=== PATIENT | female | born 1970 | race Caucasian/White ===

== ENCOUNTER 2018-10-23 08:47 | Emergency (ER) | payer MEDICAID, BC ==
[~2018-10-23] VITALS: Ht 154.9 cm; Wt 83.9 kg
[~2018-10-23 08:47] MED LIST: ADV1DS INH; ATEN-158 PO; CEPH500T PO; FLT05NA16 NS; HYDR-1231 PO; LOVA10TA PO; MONT10TA21 PO; RT-ALBUINH IH; STOMACH PILL PO
--- NOTE | 2018-10-23 08:51 | ED Fall/Injury ---
General Stated Complaint: FALL Source: patient Exam Limitations: no limitations History of Present Illness Date Seen by Provider: October 23, 2018 Time Seen by Provider: 08:44 Initial Comments The patient presents to ER by EMS from the [facility] where she works. She tripped over something on the floor fell and struck the right side of her head against a table. She denies loss of consciousness has normal vital signs but has a 1 inch laceration that has since stopped bleeding since EMS arrived. She's having some pain in her head but does not want anything for it right now. She is not on a blood thinner. She does not smoke drink or use recreational drug use. Allergies and Home Medications Allergies Coded Allergies: Penicillins (Unverified Allergy, Mild, 04/11/14) Sulfa (Sulfonamide Antibiotics) (Unverified Allergy, Mild, 04/11/14) Tetanus Vaccines & Toxoid (Unverified Allergy, Mild, 04/11/14) Home Medications Albuterol Sulfate 1 Puff Puff, 1 PUFF IH Q4H PRN for WHEEZING, (Reported) MDI Atenolol 50 Mg Tab, 50 MG PO DAILY, (Reported) Cephalexin 500 Mg Tablet, 500 MG PO QID Prescribed by: ANA CABRAL on 02/27/15 0813 Fluticasone Propionate 16 Gm [place], 2 SPRAYS NS DAILY, (Reported) Hydrocodone Bit/Acetaminophen 1 Tab Tablet, 1 TAB PO Q6H PRN for PAIN Prescribed by: ERA BENDER on 04/11/14 1313 Lovastatin 10 Mg Tablet, 1 EACH PO DAILY WITH SUPPER, (Reported) Montelukast Sodium 10 Mg Tablet, 10 MG PO DAILY, (Reported) Salmeterol Xinaf/Fluticasone 1 Diskus Inhp, 1 DISKUS INH BID, (Reported) [Stomach Pill] , Unknown Dose PO DAILY, (Reported) Patient Home Medication List Home Medication List Reviewed: Yes Review of Systems Review of Systems Constitutional: No chills, No diaphoresis Eyes: Denies Blindness, Denies Blurred Vision Ears, Nose, Mouth, Throat: denies ear pain, denies ear discharge Respiratory: No cough, No short of breath Cardiovascular: No chest pain, No edema Past Rcqbgod-Flxcza-Eksrxb Hx Patient Social History Alcohol Use: Denies Use Recreational Drug Use: No Smoking Status: Never a Smoker Recent Foreign Travel: No Contact w/Someone Who Travel: No Immunizations Up To Date Tetanus Booster (TDap): More than 5yrs Seasonal Allergies Seasonal Allergies: Yes Past Medical History Section Asthma Hypertension Reproductive Disorders: No Physical Exam Vital Signs Vital Signs - First Documented 10/23/18 08:48 Temp 98.0 Pulse 80 Resp 17 B/P (MAP) 127/81 (96) Pulse Ox 98 O2 Delivery Room Air Capillary Refill : Height, Weight, BMI Height: 5'1" Weight: 160lbs. oz. 72.384945ek; BMI Method:Estimated General Appearance: WD/WN, no apparent distress HEENT: PERRL/EOMI, normal ENT inspection, TMs normal, pharynx normal, other (negative for hemotympanum, townsend sign or raccoon eyes. There is a 2.5 cm cadet perficial laceration on the right parietal scalp) Neck: non-tender, full range of motion, supple, normal inspection Cardiovascular: normal peripheral pulses, regular rate, rhythm Respiratory: no respiratory distress, no accessory muscle use Procedures/Interventions Suture Size: 4-0 Progress/Results/Core Measures Results/Orders My Orders Orders - SOHA PHOENIX Ct Head/Cervical Spine Wo (10/23/18 08:49) Vital Signs/I&O 10/23/18 08:48 Temp 98.0 Pulse 80 Resp 17 B/P (MAP) 127/81 (96) Pulse Ox 98 O2 Delivery Room Air Progress Progress Note : Time: 11:22 Progress Note The wound edges were well approximated and cleaned thoroughly and found to just be into the dermis and subcuticular layer. No sutures or whitley are indicated. Diagnostic Imaging Diagonstic Imaging: CT (noncontrast) Plain Films/CT/US/NM/MRI: c-spine, head Comments [facility], [place] NAME: DIPIKA BARRIOS MED REC#: [id number] PT STATUS: REG ER : 1970 PHYSICIAN: SOHA PHOENIX MD ADMIT DATE: 10/23/18/ER Draft Date of Exam:10/23/18 CT HEAD/CERVICAL SPINE WO PROCEDURE: CT head and CT cervical spine without contrast. TECHNIQUE: Multiple contiguous axial images were obtained through the brain and cervical spine without the use of intravenous contrast. Sagittal and coronal reformations through the cervical spine were then performed. Auto Exposure Controls were utilized during the CT exam to meet ALARA standards for radiation dose reduction. INDICATION: Fall. FINDINGS: There are no CT findings of acute intracranial hemorrhage. There is no evidence of intracranial mass effect or shift. There is no hydrocephalus. There is no abnormal extra-axial fluid collection. The basilar cisterns are patent. There is no territorial loss of cary-white differentiation or abnormal hypodensity within the basal ganglia. The mastoid air cells appear clear. Paranasal sinuses appear clear. Cervical spine alignment appears normal. There is normal alignment of the craniocervical junction. There is normal relationship of lateral masses of C1 and C2. The facets are normally aligned. There is no abnormal facet joint or disc space widening. The vertebral body heights are maintained. There is no evidence of an acute cervical spine fracture. Lung apices appear clear. The soft tissues of the neck demonstrate no acute process. IMPRESSION: 1. No CT evidence of an acute intracranial abnormality. 2. No CT evidence of an acute cervical spine fracture or traumatic malalignment. There are no CT findings to suggest high-grade cervical canal stenosis. Dictated on workstation # [id number] Dict: 10/23/18921 Trans: 10/23/18 [id number] Interpreted by: CHEN GUSTAFSON MD Electronically signed by: Reviewed: Reviewed by Me Departure Impression Primary Impression: Fall Qualified Codes: W19.XXXA - Unspecified fall, initial encounter Additional Impression: Laceration Disposition: 01 HOME, SELF-CARE Condition: Stable Departure-Patient Inst. Decision time for Depature: 11:22 Referrals: KRYSTAL SEN MD (PCP/Family) Primary Care Physician Patient Instructions: Minor Head Injury (DC) Add. Discharge Instructions: Keep the wound clean with regular soap and water or shampoo. If you get a headache should go home and get some sleep use Tylenol or Motrin as necessary. If you have fever, intractable headaches or other worrisome symptoms such as nausea vomiting then return to your doctor for reevaluation. Work/School Note: Work Release Form Date Seen in the Emergency Department: October 23, 2018 Return to Work: October 23, 2018 Restrictions: No Restrictions SOHA PHOENIX October 23, 2018 08:51
--- NOTE | 2018-10-23 09:42 | Diagnostic Imaging Report ---
PROCEDURE: CT head and CT cervical spine without contrast. TECHNIQUE: Multiple contiguous axial images were obtained through the brain and cervical spine without the use of intravenous contrast. Sagittal and coronal reformations through the cervical spine were then performed. Auto Exposure Controls were utilized during the CT exam to meet ALARA standards for radiation dose reduction. INDICATION: Fall. FINDINGS: There are no CT findings of acute intracranial hemorrhage. There is no evidence of intracranial mass effect or shift. There is no hydrocephalus. There is no abnormal extra-axial fluid collection. The basilar cisterns are patent. There is no territorial loss of cary-white differentiation or abnormal hypodensity within the basal ganglia. The mastoid air cells appear clear. Paranasal sinuses appear clear. Cervical spine alignment appears normal. There is normal alignment of the craniocervical junction. There is normal relationship of lateral masses of C1 and C2. The facets are normally aligned. There is no abnormal facet joint or disc space widening. The vertebral body heights are maintained. There is no evidence of an acute cervical spine fracture. Lung apices appear clear. The soft tissues of the neck demonstrate no acute process. IMPRESSION: 1. No CT evidence of an acute intracranial abnormality. 2. No CT evidence of an acute cervical spine fracture or traumatic malalignment. There are no CT findings to suggest high-grade cervical canal stenosis. Dictated by: Dictated on workstation # [id number]
[2018-10-23 11:29] VITALS: BP 129/73
== END 2018-10-23 11:29 | disposition home or self-care (01) ==
LOC: EDUNIT# 08:47 → ER 08:48
DX: S01.01XA Laceration without foreign body of scalp, initial encounter (principal); J45.909 Unspecified asthma, uncomplicated; I10 Essential (primary) hypertension; Z98.890 Other specified postprocedural states; Z79.51 Long term (current) use of inhaled steroids; Z88.0 Allergy status to penicillin; Z88.2 Allergy status to sulfonamides; Z88.7 Allergy status to serum and vaccine; W01.190A Fall on same level from slipping, tripping and stumbling with subsequent striking against furniture, initial encounter; Y92.59 Other trade areas as the place of occurrence of the external cause; Y99.0 Civilian activity done for income or pay
CPT/HCPCS: 70450; 72125

== ENCOUNTER → 2019-02-10 | Outpatient (CLI) | payer BC, MEDICAID ==
--- NOTE | 2019-02-10 13:14 | Diagnostic Imaging Report ---
PROCEDURE: US Gallbladder. TECHNIQUE: Multiple real-time grayscale images were obtained over the right upper quadrant in various projections. INDICATION: Abdominal pain. COMPARISON: None available. FINDINGS: The liver is enlarged measuring just over 20 cm in length. The liver demonstrates diffusely increased echogenicity with poor acoustic transmission. A couple of hypoechoic regions are identified within the liver immediately adjacent to the gallbladder. The largest measures approximately 1.6 cm. The gallbladder escobar are at upper limits of normal measuring 0.3 cm. No evidence of pericholecystic fluid. A 0.5 x 0.4 cm nondependent echogenic focus is identified within the gallbladder. The common bile duct is within normal limits measuring 0.4 cm. Visualized portions of the pancreas are unremarkable. The right kidney is within normal limits in size without evidence of hydronephrosis or solid renal mass. No significant free fluid. Negative sonographic Irene sign. IMPRESSION: 0.5 cm non-mobile nondependent gallbladder echogenic focus which may relate to a small polyp versus adherent stone. Recommend followup ultrasound in six months to ensure stability. Fatty infiltration of the liver with associated focal fatty sparing adjacent to the gallbladder fossa. Hepatomegaly. Dictated by: Dictated on workstation # [id number]
== END ==
LOC: RAD 08:03
PROVIDERS: ATTEND Surgery
DX: K76.0 Fatty (change of) liver, not elsewhere classified (principal)
CPT/HCPCS: 76705

== ENCOUNTER 2019-02-24 11:40 | Outpatient (CLI) | payer BC ==
[~2019-02-24] VITALS: Ht 154.9 cm; Wt 76.8 kg
[~2019-02-24 11:40] MED LIST changes: +CALC600T12 PO; +CITA40TA19 PO; +DICL75TA2 PO; +FLUT1DIS26 IH; +GABA-488 PO; +HYDR25TA4 PO; +LORA10TA76 PO; +METF-397 PO; +MMT17NA NS; +MULT-351 PO; +OMEG1TAB5 PO; +RABE20TA27 PO; +ROSU10TA22 PO
== END 2019-02-24 11:52 | disposition home or self-care (01) ==
LOC: PREOP 11:40
PROVIDERS: ATTEND Surgery
DX: Z01.818 Encounter for other preprocedural examination (principal)

== ENCOUNTER 2019-02-27 10:06 | Day surgery (SDC) | payer BC ==
[~2019-02-27] VITALS: Ht 154.9 cm; Wt 76.8 kg
[~2019-02-27 10:06] MED LIST changes: +LACTATED RINGERS 1,000 ML IV ONE
[2019-02-27] MEDS ORDERED: LACTATED RINGERS 1,000 ML IV STA (10:14)
[2019-02-27] MEDS ORDERED: HURRICAINE EXT TUBE (BENZOCAINE) XX PRN (10:15)
[2019-02-27 10:20] VITALS: BP 130/76
--- NOTE | 2019-02-27 11:11 | Progress Note-Pre Operative ---
Pre-Operative Progress Note H&P Reviewed The H&P was reviewed, patient examined and no changes noted. Time Seen by Provider: 11:09 Date H&P Reviewed: Feb 27, 2019 Time H&P Reviewed: 11:07 Pre-Operative Diagnosis: Chronic Gastritis ANEESH HEREDIA DO Feb 27, 2019 11:11
[2019-02-27] MEDS ORDERED: PROPOFOL INJECTION 50 ML IV ONE (11:50)
[2019-02-27] MEDS ORDERED: MIDAZOLAM 2 MG/2 ML (VERSED) VIAL ONE (11:50)
[2019-02-27 12:10] VITALS: BP 120/61
--- NOTE | 2019-02-27 12:13 | Progress Note-Post Operative ---
Post-Operative Progess Note Surgeon (s)/Logging Crew Supervisor (s) Surgeon ANEESH HEREDIA DO Logging Crew Supervisor: none Pre-Operative Diagnosis Chronic Gastritis Post-Operative Diagnosis Gastritis Gastric Polyp Procedure & Operative Findings Date of Procedure 02/27/19 Procedure Performed/Findings EGD with bx Anesthesia Type IV sedation by FOREST FIRE LOOKOUT Estimated Blood Loss Estimated blood loss (mL): scant Specimens/Packing Specimens Removed duodenal antral body of stomach GE jxn bx ANEESH HEREDIA DO Feb 27, 2019 12:13
--- NOTE | 2019-02-27 12:14 | Endoscopy Discharge Instruct ---
Endo Procedure/Findings Findings 1.: Gastritis Discharge Instructions - Activity: You might feel a little sleepy until tomorrow. This is due to the medicine you received to relax you. Until tomorrow, you should: NOT drive a car, operate machinery or power tools. NOT drink any alcoholic beverages. NOT make any important decisions or sign importortant papers. Do not return to work until tomorrow, unless otherwise instructed. Resume previous activities tomorrow. Diet: Start by taking liquids. If you tolerate liquids, advance to solid food. make an appointment for one week 1.: EGD in 3 years Notify Physician - If you experience excessive bleeding, unusual abdominal pain, fever, or chest pain, contact your doctor immediately. ANEESH HEREDIA DO Feb 27, 2019 12:14
[2019-02-27 12:15] VITALS: BP 104/58
[2019-02-27 12:20] VITALS: BP 104/58
[2019-02-27 12:50] VITALS: BP 110/56
--- NOTE | 2019-02-27 14:42 | Anesthesia-General Post-Op ---
MAC Patient Condition Mental Status/LOC: Same as Preop Cardiovascular: Satisfactory Nausea/Vomiting: Absent Respiratory: Satisfactory Pain: Controlled Complications: Absent Post Op Complications Complications None Follow Up Care/Instructions Patient Instructions None needed. Anesthesiology Discharge Order Discharge Order Patient is doing well, no complaints, stable vital signs, no apparent adverse anesthesia problems. No complications reported per nursing. EDISON GALLAGHER CRNA Feb 27, 2019 14:42
--- NOTE | 2019-02-28 01:15 | OPERATIVE REPORT ---
DATE OF SERVICE: 02/27/2019 PREOPERATIVE DIAGNOSIS: Chronic gastritis. POSTOPERATIVE DIAGNOSES: 1. Gastritis. 2. Gastric polyp. PROCEDURE: EGD with biopsy. SURGEON: Rickie Aguirre DO DIETETIC INTERN: None. ANESTHESIA: IV sedation by the CHARRER. SPECIMEN: Biopsy from duodenum, biopsy from the antrum, biopsy from the body of stomach, biopsy from GE junction. BLOOD LOSS: Scant. FLUIDS: Per anesthesia. POSTOPERATIVE CONDITION: Stable. INDICATION FOR PROCEDURE: The patient is a 48-year-old female who has some chronic gastritis, needed EGD for workup. FINDINGS: The patient had some gastritis, gastric polyp. PROCEDURE NOTE: After informed consent was obtained, the patient was brought to the endoscopy suite and placed in the left lateral decubitus position. She was administered IV sedation by the CHARRER who then monitored her vitals the entire time, heart rate, blood pressure and pulse ox and the scope was inserted down the mouth through the esophagus and into the stomach and then pushed into the duodenum, elected to do a biopsy of the duodenum, a little bit of whitish looking and then pulled the scope back into the antrum of the stomach, did a biopsy of the antrum, then did a biopsy of body of stomach, retroflexed the scope, questionable small hiatal hernia. Pulled the scope into the GE junction, did a biopsy here as well. I then suctioned air out of the stomach and then pulled the scope up the esophagus and out the mouth. The patient tolerated the procedure, recovered in endoscopy suite. Job ID: [id number] DocumentID: [id number] Dictated Date: 02/27/2019 17:29:11 Rf Design Engineer Date: 02/28/2019 01:14:02 Dictated By: RICKIE AGUIRRE DO
== END 2019-02-27 13:10 ==
LOC: ENDO 10:06
PROVIDERS: ATTEND Surgery
DX: K29.50 Unspecified chronic gastritis without bleeding (principal); K31.7 Polyp of stomach and duodenum; E11.9 Type 2 diabetes mellitus without complications; K21.9 Gastro-esophageal reflux disease without esophagitis; F32.9 Major depressive disorder, single episode, unspecified; J45.909 Unspecified asthma, uncomplicated; I10 Essential (primary) hypertension; Z88.0 Allergy status to penicillin; Z79.899 Other long term (current) drug therapy; Z79.84 Long term (current) use of oral hypoglycemic drugs; Z88.2 Allergy status to sulfonamides; Z88.7 Allergy status to serum and vaccine; Z88.8 Allergy status to other drugs, medicaments and biological substances; Z82.49 Family history of ischemic heart disease and other diseases of the circulatory system; Z80.9 Family history of malignant neoplasm, unspecified

== ENCOUNTER 2020-03-07 05:31 | Outpatient (RCR) | payer BC ==
[~2020-03-07] VITALS: Ht 167.7 cm; Wt 77.3 kg
[~2020-03-07 05:31] MED LIST changes: +ATEN50TA PO; +BUSP10TA95 PO; -CALC600T12 PO; +CLC600T PO; +ESTR10TA VG; +GABA300C PO; -LACTATED RINGERS 1,000 ML IV ONE; -MMT17NA NS; +MMT17NA NSEACH
== END 2020-03-07 10:06 | disposition home or self-care (01) ==
LOC: PREOP 05:31
PROVIDERS: ATTEND Surgery
DX: Z01.818 Encounter for other preprocedural examination (principal); Z01.812 Encounter for preprocedural laboratory examination; K29.70 Gastritis, unspecified, without bleeding; Z20.828 Contact with and (suspected) exposure to other viral communicable diseases
CPT/HCPCS: 87635

== ENCOUNTER 2020-03-11 07:37 | Day surgery (SDC) | payer BC ==
[~2020-03-11] VITALS: Ht 167.7 cm; Wt 77.3 kg
[2020-03-11] MEDS ORDERED: LACTATED RINGERS 1,000 ML IV ONE (07:48)
[2020-03-11] MEDS ORDERED: LACTATED RINGERS 1,000 ML IV STA (07:49)
[2020-03-11] MEDS ORDERED: HURRICAINE EXT TUBE (BENZOCAINE) XX PRN (08:00)
[2020-03-11] MEDS ORDERED: proPOfol 200 MG/20 ML (DIPRIVAN) VIAL IV ONE (08:06)
--- NOTE | 2020-03-11 08:06 | Progress Note-Pre Operative ---
Pre-Operative Progress Note H&P Reviewed The H&P was reviewed, patient examined and no changes noted. Time Seen by Provider: 08:03 Date H&P Reviewed: Mar 11, 2020 Time H&P Reviewed: 08:04 Pre-Operative Diagnosis: Chronic Gastritis ANEESH HEREDIA DO Mar 11, 2020 08:06
[2020-03-11 08:09] VITALS: BP 123/67
[2020-03-11] MEDS ORDERED: RT-ALBUINH INH (08:23)
[2020-03-11] MEDS ORDERED: ASPI-479 PO (08:24)
[2020-03-11] MEDS ORDERED: FAMO20TA3 PO (08:25)
[2020-03-11] MEDS ORDERED: CITA40TA19 PO (08:25)
[2020-03-11] MEDS ORDERED: HURRICAINE EXT TUBE (BENZOCAINE) ONE (08:29)
[2020-03-11 09:05] VITALS: BP 133/75
--- NOTE | 2020-03-11 09:07 | Progress Note-Post Operative ---
Post-Operative Progess Note Surgeon (s)/Investment Banking Manager (s) Surgeon ANEESH HEREDIA DO Investment Banking Manager: none Pre-Operative Diagnosis Chronic Gastritis Post-Operative Diagnosis Gastritis Hiatal Hernia Procedure & Operative Findings Date of Procedure 03/11/20 Procedure Performed/Findings EGD with bx Anesthesia Type IV sedation by FOOD AND BEVERAGE SERVICE MANAGER Estimated Blood Loss Estimated blood loss (mL): scant Specimens/Packing Specimens Removed Antral bx GE jxn bx ANEESH HEREDIA DO Mar 11, 2020 09:07
--- NOTE | 2020-03-11 09:08 | Endoscopy Discharge Instruct ---
Endo Procedure/Findings Findings 1.: Gastritis 2.: Hiatal Hernia Discharge Instructions - Activity: You might feel a little sleepy until tomorrow. This is due to the medicine you received to relax you. Until tomorrow, you should: NOT drive a car, operate machinery or power tools. NOT drink any alcoholic beverages. NOT make any important decisions or sign importortant papers. Do not return to work until tomorrow, unless otherwise instructed. Resume previous activities tomorrow. Diet: Start by taking liquids. If you tolerate liquids, advance to solid food. 1.: EGD in 3 years Notify Physician - If you experience excessive bleeding, unusual abdominal pain, fever, or chest pain, contact your doctor immediately. ANEESH HEREDIA DO Mar 11, 2020 09:08
[2020-03-11 09:10] VITALS: BP 112/61
[2020-03-11 09:15] VITALS: BP_SYST 112; BP_SYST 114; BP_DIAS 60; BP_DIAS 72
[2020-03-11 09:49] VITALS: BP 128/79
[2020-03-11 09:50] VITALS: BP 128/79
--- NOTE | 2020-03-11 12:50 | Anesthesia-General Post-Op ---
MAC Patient Condition Mental Status/LOC: Same as Preop Cardiovascular: Satisfactory Nausea/Vomiting: Absent Respiratory: Satisfactory Pain: Controlled Complications: Absent Post Op Complications Complications None Follow Up Care/Instructions Patient Instructions None needed. Anesthesiology Discharge Order Discharge Order Patient is doing well, no complaints, stable vital signs, no apparent adverse anesthesia problems. No complications reported per nursing. DILLON ALVARES CRNA Mar 11, 2020 12:50
--- NOTE | 2020-03-12 02:26 | OPERATIVE REPORT ---
DATE OF SERVICE: 03/11/2020 PREOPERATIVE DIAGNOSIS: Chronic gastritis. POSTOPERATIVE DIAGNOSES: Gastritis, hiatal hernia. PROCEDURE: EGD with biopsy. SURGEON: Rickie Aguirre DO JAVA DESIGNER: None. ANESTHESIA: IV sedation by the ZYGLO TECHNICIAN. SPECIMEN: Biopsy of the antrum, biopsy of the GE junction. BLOOD LOSS: Scant. FLUIDS: Per anesthesia. POSTOPERATIVE CONDITION: Stable. INDICATION FOR PROCEDURE: The patient is a 49-year-old female who continues to have gastritis and epigastric pain one to two times a week, its a burning pain that she thought might be getting worse and wanted to have an EGD to get this looked at. FINDINGS: The patient had some mild gastritis. She had a relatively large hiatal hernia, but did not really have any change of the GE junction. Picture was taken and biopsies performed. PROCEDURE NOTE: After informed consent was obtained, the patient was brought to the endoscopy suite, placed in bed in left lateral decubitus position. She was administered IV sedation by the ZYGLO TECHNICIAN who then monitored her vitals the entire time, heart rate, blood pressure and pulse ox and the scope was inserted down the mouth through the esophagus into the stomach, pushed into the stomach and then into the duodenum. Duodenum looked fine, took a picture, then pulled back into the antrum, took a picture, noted some redness, took a biopsy here. Retroflexed the scope, saw hiatal hernia. Rest of the stomach looked okay and then pulled the scope into the GE junction, did a biopsy of the GE junction and then pushed the scope into the stomach, suctioned all the air out and then pulled the scope up the esophagus and out the mouth. The patient tolerated the procedure. She was recovered in the endoscopy suite. Job ID: [id number] DocumentID: [id number] Dictated Date: 03/11/2020 15:31:29 Manager User Experience Date: 03/12/2020 02:26:15 Dictated By: RICKIE AGUIRRE DO [facility]
== END 2020-03-11 09:52 | disposition home or self-care (01) ==
LOC: ENDO 07:37
PROVIDERS: ATTEND Surgery
DX: K44.9 Diaphragmatic hernia without obstruction or gangrene (principal); K21.00 Gastro-esophageal reflux disease with esophagitis, without bleeding; K29.50 Unspecified chronic gastritis without bleeding; I10 Essential (primary) hypertension; J45.909 Unspecified asthma, uncomplicated; F32.9 Major depressive disorder, single episode, unspecified; K21.9 Gastro-esophageal reflux disease without esophagitis; E11.9 Type 2 diabetes mellitus without complications; Z79.899 Other long term (current) drug therapy; Z88.0 Allergy status to penicillin; Z88.2 Allergy status to sulfonamides; Z88.7 Allergy status to serum and vaccine; Z80.9 Family history of malignant neoplasm, unspecified
CPT/HCPCS: 88305

== ENCOUNTER → 2021-01-09 | Outpatient (CLI) | payer BC ==
[~2021-01-09] MED LIST changes: +ASPI-479 PO; +CALC600T91 PO; -CLC600T PO; +FAMO20TA3 PO; -RABE20TA27 PO; +RABE20TA30 PO; +RT-ALBUINH INH
--- NOTE | 2021-01-09 12:36 | Diagnostic Imaging Report ---
INDICATION: Routine screening. COMPARISON: 01/27/2018 and 02/03/2016. TECHNIQUE: 2D and 3D bilateral screening mammography was performed with CAD. FINDINGS: Scattered fibroglandular densities are identified bilaterally. No dominant mass or malignant-appearing microcalcifications are seen. The axillae are unremarkable. IMPRESSION: No mammographic features suspicious for malignancy are identified. ACR BI-RADS Category 1: Negative. Result letter will be mailed to the patient. Note: At least 10% of breast cancer is not imaged by mammography. Dictated by: Dictated on workstation # [id number]
== END ==
LOC: RAD 10:30
PROVIDERS: ATTEND Family Medicine
DX: Z12.31 Encounter for screening mammogram for malignant neoplasm of breast (principal); Z80.3 Family history of malignant neoplasm of breast
CPT/HCPCS: 77063; 77067

== ENCOUNTER 2021-01-20 05:39 | Outpatient (CLI) | payer BC ==
[~2021-01-20] VITALS: Ht 154.9 cm; Wt 74.8 kg
[2021-01-20] MEDS ORDERED: BUSP10TA95 PO (13:24)
== END 2021-01-20 16:23 | disposition home or self-care (01) ==
LOC: PREOP 05:39
PROVIDERS: ATTEND Surgery
DX: Z01.818 Encounter for other preprocedural examination (principal)

== ENCOUNTER 2021-01-27 07:25 | Day surgery (SDC) | payer BC ==
[2021-01-27] VITALS (8 sets, daily range): BP systolic 122–138; BP diastolic 52–71
[~2021-01-27] VITALS: Ht 154.9 cm; Wt 74.8 kg
[2021-01-27] MEDS ORDERED: LACTATED RINGERS 1,000 ML IV STA (07:41)
[2021-01-27] MEDS ORDERED: LACTATED RINGERS 1,000 ML IV ONE (07:57)
--- NOTE | 2021-01-27 08:21 | Progress Note-Pre Operative ---
Pre-Operative Progress Note H&P Reviewed The H&P was reviewed, patient examined and no changes noted. Time Seen by Provider: 08:08 Date H&P Reviewed: Jan 27, 2021 Time H&P Reviewed: 08:08 Pre-Operative Diagnosis: Screening colonoscopy ANEESH HEREDIA DO Jan 27, 2021 08:21
[2021-01-27] MEDS ORDERED: LORA10TA76 PO (08:32)
[2021-01-27] MEDS ORDERED: SUCR1TAB PO (08:32)
[2021-01-27] MEDS ORDERED: LISI10TA25 PO (08:32)
[2021-01-27] MEDS ORDERED: MELO15TA39 PO (08:32)
[2021-01-27] MEDS ORDERED: PROPOFOL INJECTION 50 ML IV ONE (08:32)
--- NOTE | 2021-01-27 09:27 | Progress Note-Post Operative ---
Post-Operative Progess Note Surgeon (s)/Enrollment Management Manager (s) Surgeon ANEESH HEREDIA DO Enrollment Management Manager: KEHINDE IzquierdoII Pre-Operative Diagnosis Screening colonoscopy Post-Operative Diagnosis Polyps Int hemorrhoids Poor prep Procedure & Operative Findings Date of Procedure 01/27/21 Procedure Performed/Findings Colonoscopy with Snare Polypectomy PROCEDURE NOTE: After informed consent was obtained, the patient was brought to the endoscopy suite, placed in bed in left lateral decubitus position. She was administered IV sedation by the AGILE SCRUM COACH who then monitored her vitals the entire time, heart rate, blood pressure and pulse ox and the scope was inserted. Immediately upon entering noted a lot of liquid and vegetable matter, some quite Larged. Pushed all the way to about 150 cm and pushed into the cecum, unable to take a picture of appendiceal orifice because of retained fecal material. Slowly withdrew the scope insufflating to look circumferentially at the escobar starting in the cecum and up the ascending colon. In the ascending colon saw a large flat polyp and elected to do a snare polypectomy with heat; able to remove almost all of it. Continued up to the hepatic flexure, then down the transverse colon; where another large flat polyp was found and again did snare polypectomy. Then pulled back to splenic flexure, into the descending colon down into the sigmoid and then into the rectal vault and retroflexed the scope. Took picture of the internal hemorrhoids again with fecal material that could not be completely cleaned out. The patient tolerated the procedure. She was recovered in endoscopy suite. Anesthesia Type IV sedation by AGILE SCRUM COACH Estimated Blood Loss Estimated blood loss (mL): scant Specimens/Packing Specimens Removed asc colon polyp transverse colon polyp ANEESH HEREDIA DO Jan 27, 2021 09:27
--- NOTE | 2021-01-27 09:28 | Endoscopy Discharge Instruct ---
Endo Procedure/Findings Findings 1.: Polyp 2.: Internal Hemorrhoids 3.: Other Findings (poor prep) Discharge Instructions - Activity: You might feel a little sleepy until tomorrow. This is due to the medicine you received to relax you. Until tomorrow, you should: NOT drive a car, operate machinery or power tools. NOT drink any alcoholic beverages. NOT make any important decisions or sign importortant papers. Do not return to work until tomorrow, unless otherwise instructed. Resume previous activities tomorrow. Diet: Start by taking liquids. If you tolerate liquids, advance to solid food. 1.: Colonoscopy in 1 year (because of large polyps taking out in pieces and poor prep) Notify Physician - If you experience excessive bleeding, unusual abdominal pain, fever, or chest pain, contact your doctor immediately. ANEESH HEREDIA DO Jan 27, 2021 09:28
--- NOTE | 2021-01-27 11:18 | Anesthesia-General Post-Op ---
MAC Patient Condition Mental Status/LOC: Same as Preop Cardiovascular: Satisfactory Nausea/Vomiting: Absent Respiratory: Satisfactory Pain: Controlled Complications: Absent Post Op Complications Complications None Follow Up Care/Instructions Patient Instructions None needed. Anesthesiology Discharge Order Discharge Order Patient is doing well, no complaints, stable vital signs, no apparent adverse anesthesia problems. No complications reported per nursing. TAYLOR ALVAREZ CRNA Jan 27, 2021 11:18
== END 2021-01-27 10:15 | disposition home or self-care (01) ==
LOC: ENDO 07:25
PROVIDERS: ATTEND Surgery
DX: Z12.11 Encounter for screening for malignant neoplasm of colon (principal); K51.40 Inflammatory polyps of colon without complications; D12.3 Benign neoplasm of transverse colon; K64.8 Other hemorrhoids; J45.909 Unspecified asthma, uncomplicated; E78.5 Hyperlipidemia, unspecified; E11.9 Type 2 diabetes mellitus without complications; E66.9 Obesity, unspecified; I10 Essential (primary) hypertension; F32.9 Major depressive disorder, single episode, unspecified; Z79.899 Other long term (current) drug therapy; Z79.84 Long term (current) use of oral hypoglycemic drugs; Z68.31 Body mass index [BMI] 31.0-31.9, adult
CPT/HCPCS: 88305

== ENCOUNTER → 2021-09-17 | Outpatient (CLI) | payer BC ==
[~2021-09-17] MED LIST changes: +LISI10TA25 PO; +MELO15TA39 PO; -MMT17NA NSEACH; +MOME17SP4 NSEACH; +SUCR1TAB PO
[2021-09-17 14:22] VITALS: BP 138/86
--- NOTE | 2021-09-17 15:23 | Cardiology Stress Test Report ---
Stress Test Report Date of Procedure/Referring: Date of Procedure: Sep 17, 2021 PCP Jocy Ta MD Admitting Physician Jocy Ta MD Indications: CP Baseline Heart Rate: 79 Baseline Blood Pressure: Blood Pressure Systolic: 138 Blood Pressure Diastolic: 86 Baseline EKG: Baseline EKG: NSR Summary/Conclusion: Summary: In summary, the patient started exercising with a baseline heart rate, blood pressure and EKG mentioned above Patient was able to exercise for a total of 7minutes on Abundio protocol, METs 8.5 Maximum heart rate 127 Maximum blood pressure 155/58 Stress EKG, Minimal nondiagnostic changes Recovery EKG , Return to baseline Conclusion: 1. Submaximal stress test, patient was unable to exercise beyond 7 minutes on standard Abundio protocol, 8.5 METS achieving only 75% of maximal expected heart rate 2. Appropriate heart rate and blood pressure response to exercise return to baseline during recovery 3. Minimal nondiagnostic EKG changes with exercise return to baseline during recovery DANIKA BREWER MD Sep 17, 2021 15:23
== END ==
LOC: CARD 14:00
PROVIDERS: ATTEND Family Medicine
DX: I10 Essential (primary) hypertension (principal); R07.9 Chest pain, unspecified; W19.XXXA Unspecified fall, initial encounter
CPT/HCPCS: 93017

== ENCOUNTER 2023-04-07 05:36 | Outpatient (CLI) | payer OTHER ==
[~2023-04-07] VITALS: Ht 154.9 cm; Wt 74.8 kg
[~2023-04-07 05:36] MED LIST changes: +FAMO-356 PO; -FAMO20TA3 PO; +MONT-47 PO; +NF-CRES10T PO; -ROSU10TA22 PO
== END 2023-04-07 09:52 | disposition home or self-care (01) ==
LOC: PREOP 05:36
PROVIDERS: ATTEND Surgery
DX: Z01.818 Encounter for other preprocedural examination (principal)

== ENCOUNTER 2023-04-19 08:15 | Day surgery (SDC) | payer BC, OTHER ==
[~2023-04-19] VITALS: Ht 154.9 cm; Wt 74.8 kg
[2023-04-19] MEDS ORDERED: LACTATED RINGERS 1,000 ML 1,000 ML IV STA (08:18)
--- NOTE | 2023-04-19 08:26 | Progress Note-Pre Operative ---
Pre-Operative Progress Note Date of Available H&P: Mar 30, 2023 Date H&P Reviewed: Apr 19, 2023 Time H&P Reviewed: 08:21 History & Physical: H&P Reviewed, Patient Examed, No changes noted Pre-Operative Diagnosis: Chronic Gastritis ANEESH HEREDIA DO Apr 19, 2023 08:26
[2023-04-19] MEDS ORDERED: HURRICAINE EXT TUBE (BENZOCAINE) XX PRN (08:30)
[2023-04-19 08:38] VITALS: BP 127/77
--- NOTE | 2023-04-19 09:14 | Progress Note-Post Operative ---
Post-Operative Progess Note Surgeon (s)/All Around Patternmaker (s) Surgeon ANEESH HEREDIA DO All Around Patternmaker: none Pre-Operative Diagnosis Chronic Gastritis Post-Operative Diagnosis Gastritis Hiatal hernia - sliding, very small Gastroparesis Procedure & Operative Findings Date of Procedure 04/19/23 Procedure Performed/Findings EGD with biopsy PROCEDURE NOTE: After informed consent was obtained, the patient was brought to the endoscopy suite, placed in bed in left lateral decubitus position. She was administered IV sedation by the CHILD CARE C[facility] ADMINISTRATOR who then monitored vitals the entire time, heart rate, blood pressure and pulse ox and the scope was inserted down the mouth through the esophagus into the stomach. On the way down, noted some mild esophagitis, took a picture, pushed into the stomach, noted a large amount of retained food and pushed past the antrum into the duodenum. Duodenum looked good. Pulled back, noted some gastritis at the antrum and body; did a biopsy of the antrum and the body. I could not see all of the stomach because I could not clear all of the retained food. I then retroflexed the scope, saw a very small sliding hiatal hernia and took a picture of this. Next, pulled the scope into the GE junction, took another picture of the hiatal hernia and then did a biopsy of the GE junction. Pushed the scope back into the stomach, suctioned all the air out of the stomach. At this point pulled the scope up the esophagus and out the mouth. The patient tolerated the procedure, and she recovered in endoscopy suite. Anesthesia Type IV sedation by CH[facility] CARE C[facility] ADMINISTRATOR Estimated Blood Loss Estimated blood loss (mL): scant Specimens/Packing Specimens Removed antral bx body of stomach bx GE jxn bx ANEESH HEREDIA DO Apr 19, 2023 09:14
[2023-04-19 09:15] VITALS: BP 98/51
--- NOTE | 2023-04-19 09:16 | Endoscopy Discharge Instruct ---
Endo Procedure/Findings Findings 1.: Gastritis 2.: Hiatal Hernia 3.: Other Findings (??Gastroparesis) Discharge Instructions - Activity: You might feel a little sleepy until tomorrow. This is due to the medicine you received to relax you. Until tomorrow, you should: NOT drive a car, operate machinery or power tools. NOT drink any alcoholic beverages. NOT make any important decisions or sign importortant papers. Do not return to work until tomorrow, unless otherwise instructed. Resume previous activities tomorrow. Diet: Start by taking liquids. If you tolerate liquids, advance to solid food. 1.: EGD in 1 year Notify Physician - If you experience excessive bleeding, unusual abdominal pain, fever, or chest pain, contact your doctor immediately. Follow-Up: Other Follow up in my office in one week ANEESH HEREDIA DO Apr 19, 2023 09:15
[2023-04-19 09:20] VITALS: BP 128/77
[2023-04-19 09:35] VITALS: BP 103/59
[2023-04-19 10:20] VITALS: BP 103/59
--- NOTE | 2023-04-19 11:45 | Anesthesia-General Post-Op ---
MAC Patient Condition Mental Status/LOC: Same as Preop Cardiovascular: Satisfactory Nausea/Vomiting: Absent Respiratory: Satisfactory Pain: Controlled Complications: Absent Post Op Complications Complications None Follow Up Care/Instructions Patient Instructions None needed. Anesthesiology Discharge Order Discharge Order Patient is doing well, no complaints, stable vital signs, no apparent adverse anesthesia problems. No complications reported per nursing. DILLON ALVARES CRNA Apr 19, 2023 11:45
== END 2023-04-19 10:20 | disposition home or self-care (01) ==
LOC: ENDO 08:15
PROVIDERS: ATTEND Surgery
DX: K29.50 Unspecified chronic gastritis without bleeding (principal); K44.9 Diaphragmatic hernia without obstruction or gangrene; K31.84 Gastroparesis; K21.9 Gastro-esophageal reflux disease without esophagitis; E66.9 Obesity, unspecified; Z79.899 Other long term (current) drug therapy; Z68.31 Body mass index [BMI] 31.0-31.9, adult
CPT/HCPCS: 88305